=== PATIENT | female | born 1950 | race Caucasian/White ===

== ENCOUNTER 2020-09-16 11:03 | Observation (INO) | payer MEDICARE, BC ==
[2020-09-16] MEDS ORDERED: Sodium Chloride 0.9% 1,000 ML IV ONE (11:33)
[2020-09-16 12:02] LABS: ANION GAP 12.7 mmol/L (5-15)
--- NOTE | 2020-09-16 12:02 | EDM.PDOC ---
ED HPI GENERAL MEDICAL PROBLEM - General Chief Complaint: Abdominal Pain Stated Complaint: upper abdominal pain Time Seen by Provider: 09/16/20 11:30 Source of Information: Reports: Patient History Limitations: Reports: No Limitations - History of Present Illness INITIAL COMMENTS - FREE TEXT/NARRATIVE: Patient reports abdominal pain that started at 5 am today. States she had a prior episode about 2 weeks ago. States pain is a dull cramping. Pain is intermittent and better at this time. Rated a 1/10. Denies nausea or vomiting. Had a regular BM today. No diarrhea. No recent illnesses. No alcohol consumption or smoking. Has had total hysterectomy. Still does have gall bladder and appendix. Denies cardiac medical history. Is being tested for Von Willebrand due to elevated PT/PTT. Results pending. No SOB, chest pain. Onset: Today, Sudden Onset Date: 09/16/20 Onset Time: 05:00 Duration: Intermittent Location: Reports: Abdomen Quality: Reports: Ache Severity: Moderate Improves with: Reports: None Worsens with: Reports: Movement Associated Symptoms: Reports: No Other Symptoms Epigastric Pain Score (Numeric/FACES): 5 - Related Data Allergies Allergy/AdvReac Type Severity Reaction Status Date / Time acetaminophen [From Lortab] Allergy Nausea and Verified 09/16/20 11:39 Vomiting atorvastatin [From Lipitor] Allergy Muscle Verified 09/16/20 11:39 Aches fenofibrate nanocrystallized Allergy Leg Cramps Verified 09/16/20 11:39 [From Tricor] fenofibrate,micronized Allergy Leg Cramps Verified 09/16/20 11:39 [From Tricor] gluten Allergy Diarrhea Verified 09/16/20 11:39 hydrocodone bitartrate Allergy Nausea and Verified 09/16/20 11:39 [From Lortab] Vomiting isoniazid Allergy Hives Verified 09/16/20 11:39 penicillin Allergy Rash Verified 09/16/20 11:39 tuberculin, purified protein Allergy Cannot Verified 09/16/20 11:39 deriva Remember [tuberculin,purif.prot.deriv.] Home Meds: Home Meds Ascorbate Calcium [Vitamin C] 500 mg PO DAILY 02/02/15 [History] Calcium Carb/Vitamin D3/Vit K1 [Viactiv Soft Chew] 1 tab PO BID 02/02/15 [History] Hyalur Ac/Chond Sul/Colg II/AA [Hyaluronic Acid 40 MG] 1 cap PO ASDIRECTED 02/02/15 [History] Hydrochlorothiazide 25 mg PO DAILY 02/02/15 [History] Levothyroxine [Synthroid] 50 mcg PO DAILY 02/02/15 [History] Menthol/Zinc Oxide [Calmoseptine Ointment Packet] 1 applic TOP BID PRN 02/02/15 [History] Multivitamin with Minerals [Multivitamins with Minerals] 1 tab PO DAILY 02/02/15 [History] Niacin 1,500 mg PO DAILY@18 02/02/15 [History] Vitamin E 400 unit PO DAILY 02/02/15 [History] Aspirin [Ecotrin] 81 mg PO BEDTIME 07/08/15 [History] Docusate Sodium [Colace] 100 mg PO BID PRN 07/08/15 [History] Estrogens, Conjugated [Premarin Vaginal Crm] 0.5 gm VAG .TWICE WEEKLY 07/08/15 [History] Fish Oil/[place]-3 Fatty Acids [Fish Oil] 1 tab PO BID 07/08/15 [History] Ibuprofen [Motrin] 200 - 600 mg PO Q4H PRN 07/08/15 [History] Polyethylene Glycol 3350 [MiraLAX] 17 gm PO DAILY PRN 07/08/15 [History] Chromium Picolinate 200 mcg PO BID 02/27/17 [History] Cyclobenzaprine [Flexeril] 10 mg PO TID PRN 02/27/17 [History] Verapamil [Calan SR] 120 mg PO DAILY 02/27/17 [History] DULoxetine [Cymbalta] 30 mg PO DAILY 09/16/20 [History] Losartan [Cozaar] 25 mg PO DAILY 09/16/20 [History] Past Medical History Cardiovascular History: Reports: High Cholesterol, Hypertension, Other (See Below) Other Cardiovascular History: palpitations Respiratory History: Reports: Sleep Apnea, Other (See Below) Other Respiratory History: pulmonary hypertension Musculoskeletal History: Reports: Arthritis, Back Pain, Chronic, Osteoarthritis, Other (See Below) Other Musculoskeletal History: ankle fx Neurological History: Reports: Neuropathy, Peripheral Psychiatric History: Reports: Depression Endocrine/Metabolic History: Reports: Hypothyroidism, Obesity/BMI 30+ Hematologic History: Reports: Other (See Below) Other Hematologic History: von willebrands disease Oncologic (Cancer) History: Reports: Uterine - Infectious Disease History Infectious Disease History: Reports: None - Past Surgical History HEENT Surgical History: Reports: Naso-Sinus Surgery GI Surgical History: Reports: Colonoscopy Female Surgical History: Reports: Section, Hysterectomy Musculoskeletal Surgical History: Reports: Carpal Tunnel, Hip Replacement, Other (See Below) Other Musculoskeletal Surgeries/Procedures:: plantar fasciitis. carpal tunnel syndrome. trigger finger Social & Family History - Tobacco Use Tobacco Use Status *Q: Never Tobacco User ED ROS GENERAL - Review of Systems Review Of Systems: See Below Constitutional: Reports: No Symptoms HEENT: Reports: No Symptoms Respiratory: Reports: No Symptoms Cardiovascular: Reports: No Symptoms Endocrine: Reports: No Symptoms GI/Abdominal: Reports: Abdominal Pain : Reports: No Symptoms Musculoskeletal: Reports: No Symptoms Skin: Reports: No Symptoms Neurological: Reports: No Symptoms Psychiatric: Reports: No Symptoms Hematologic/Lymphatic: Reports: No Symptoms Immunologic: Reports: No Symptoms ED EXAM, GI/ABD - Physical Exam Exam: See Below Exam Limited By: No Limitations General Appearance: Alert, WD/WN, No Apparent Distress Eyes: Bilateral: Normal Appearance, EOMI Ears: Normal External Exam, Normal Canal, Hearing Grossly Normal, Normal TMs Nose: Normal Inspection, Normal Mucosa, No Blood Throat/Mouth: Normal Inspection, Normal Lips, Normal Teeth, Normal Gums, Normal Oropharynx, Normal Voice, No Airway Compromise Head: Atraumatic, Normocephalic Neck: Normal Inspection, Supple, Non-Tender, Full Range of Motion Respiratory/Chest: No Respiratory Distress, Lungs Clear, Normal Breath Sounds, No Accessory Muscle Use, Chest Non-Tender Cardiovascular: Normal Peripheral Pulses, Regular Rate, Rhythm, No Edema, No Gallop, No JVD, No Murmur, No Rub GI/Abdominal Exam: Normal Bowel Sounds, Soft, No Organomegaly, No Distention, No Abnormal Bruit, No Mass, Tender (tender on palpitation, upper mid abdomen) Back Exam: Normal Inspection, Full Range of Motion, NT Extremities: Normal Inspection, Normal Range of Motion, Non-Tender, Normal Capillary Refill, No Pedal Edema Neurological: Alert, Oriented, CN II-XII Intact, Normal Cognition, Normal Gait, Normal Reflexes, No Motor/Sensory Deficits Psychiatric: Normal Affect, Normal Mood Skin Exam: Warm, Dry, Intact, Normal Color, No Rash Lymphatic: No Adenopathy #1 Interpretation EKG Date: 09/16/20 Time: 11:11 Rhythm: NSR Rate (Beats/Min): 61 [place]: Normal P-Wave: Present QRS: Normal ST-T: Normal QT: Normal Comparison: No Change Course - Vital Signs Last Recorded V/S: Last Vital Signs Temp 36.9 C 09/16/20 21:56 Pulse 65 09/16/20 21:56 Resp 17 09/16/20 21:56 BP 144/61 H 09/16/20 21:56 Pulse Ox 92 L 09/16/20 21:56 - Orders/Labs/Meds Orders: Active Orders 24 hr Category Date Time Status EKG Documentation Completion [RC] STAT Care 09/16/20 11:31 Active Sodium Chloride 0.9% [Saline Flush] Med 09/16/20 11:33 Active 10 ml FLUSH ASDIRECTED PRN Saline Lock Insert [OM.PC] Routine Oth 09/16/20 11:33 Ordered Medication Orders Morphine Sulfate (Morphine 2 Mg/Ml Syringe) 2 mg IVPUSH Q2H PRN PRN Reason: Pain (severe 7-10) Last Admin: 09/16/20 22:25 Dose: 2 mg Documented by: Admin: 09/16/20 19:46 Dose: 2 mg Documented by: Admin: 09/16/20 15:55 Dose: 2 mg Documented by: ROLANDO Ondansetron HCl (Ondansetron 4 Mg/2 Ml Sdv) 4 mg IV Q6H PRN PRN Reason: Nausea/Vomiting Last Admin: 09/16/20 22:24 Dose: 4 mg Documented by: Admin: 09/16/20 15:56 Dose: 4 mg Documented by: OR[place]O Sodium Chloride (Sodium Chloride 0.9% 10 Ml Syringe) 10 ml FLUSH ASDIRECTED PRN PRN Reason: Keep Vein Open Last Admin: 09/16/20 22:24 Dose: 10 ml Documented by: Admin: 09/16/20 19:45 Dose: 10 ml Documented by: Admin: 09/16/20 15:58 Dose: 10 ml Documented by: ROLANDO Labs: Laboratory Tests 09/16/20 09/16/20 09/16/20 Range/Units 11:20 11:20 12:30 WBC 11.3 H (4.0-10.0) x10^3/uL RBC 4.03 (4.00-5.50) x10^6/uL Hgb 12.5 (12.0-16.0) g/dL Hct 35.9 (33.0-47.0) % MCV 89.1 (78.0-93.0) fL MCH 31.0 (26.0-32.0) pg MCHC 34.8 (32.0-36.0) g/dL RDW Coeff of Tejal 12.9 (10.0-15.0) % Plt Count 274 (130-400) x10^3/uL Neut % (Auto) 84.9 H (50.0-80.0) % Lymph % (Auto) 7.0 L (25.0-50.0) % [place] % (Auto) 6.8 (2.0-11.0) % Eos % (Auto) 1.1 (0.0-4.0) % Baso % (Auto) 0.2 (0.2-1.2) % Sodium 135 L (136-145) mmol/L Potassium 3.7 (3.5-5.1) mmol/L Chloride 96 L (98-107) mmol/L Carbon Dioxide 30 (21-32) mmol/L Anion Gap 12.7 (5-15) mmol/L BUN 24 H (7-18) mg/dL Creatinine 1.2 H (0.55-1.02) mg/dL Est Cr Clr Drug Dosing 38.90 mL/min Estimated GFR (MDRD) 44 Glucose 133 H (70-99) mg/dL Calcium 9.5 (8.5-10.1) mg/dL Corrected Calcium 9.6 (8.5-10.1) mg/dL Magnesium 1.8 (1.8-2.4) mg/dL Total Bilirubin 0.6 (0.2-1.0) mg/dL AST 19 (15-37) U/L ALT 27 (14-59) U/L Alkaline Phosphatase 76 (46-116) U/L Creatine Kinase 126 (26-192) U/L Troponin I High Sens 9 (<=51) ng/L Total Protein 7.8 (6.4-8.2) g/dL Albumin 3.9 (3.4-5.0) g/dL Globulin 3.9 Albumin/Globulin Ratio 1.00 Amylase 84 (25-115) U/L Urine Color Dark yellow H (YELLOW) Urine Appearance Clear (CLEAR) Urine pH 6.0 (5.0-8.0) Ur Specific [place] 1.025 Urine Protein Negative (NEGATIVE) mg/dL Urine Glucose (UA) Negative (NEGATIVE) mg/dL Urine Ketones Trace H (NEGATIVE) mg/dL Urine Occult Blood Negative (NEGATIVE) Urine Nitrite Negative (NEGATIVE) Urine Bilirubin Small H (NEGATIVE) Urine Urobilinogen 0.2 (0.2) EU/dL Ur Leukocyte Esterase Negative (NEGATIVE) Meds: Medications Generic Name Dose Route Start Last Admin Trade Name Freq PRN Reason Stop Dose Admin Morphine Sulfate 2 mg 09/16/20 15:09 09/16/20 22:25 Morphine 2 Mg/Ml Syringe IVPUSH 2 mg Q2H PRN Administration Pain (severe 7-10) Ondansetron HCl 4 mg 09/16/20 15:09 09/16/20 22:24 Ondansetron 4 Mg/2 Ml Sdv IV 4 mg Q6H PRN Administration Nausea/Vomiting Sodium Chloride 10 ml 09/16/20 11:33 09/16/20 22:24 Sodium Chloride 0.9% 10 Ml Syringe FLUSH 10 ml ASDIRECTED PRN Administration Keep Vein Open Discontinued Medications Generic Name Dose Route Start Last Admin Trade Name Freq PRN Reason Stop Dose Admin Sodium Chloride 1,000 mls @ 999 mls/hr 09/16/20 11:33 09/16/20 11:30 Normal Saline IV 09/16/20 12:33 999 mls/hr ONETIME ONE Administration Iopamidol 100 ml 09/16/20 13:15 09/16/20 13:16 Iopamidol 612 Mg/Ml 100 Ml Bottle IVPUSH 09/16/20 13:16 100 ml ONETIME ONE Administration - Radiology Interpretation Free Text/Narrative:: CT scan shows partial small bowel obstruction Departure - Departure Time of Disposition: 14:35 Disposition: Refer to Observation Condition: Good Clinical Impression: Small bowel obstruction - Discharge Information *PRESCRIPTION DRUG MONITORING PROGRAM REVIEWED*: Not Applicable *COPY OF PRESCRIPTION DRUG MONITORING REPORT IN PATIENT LG: Not Applicable Sepsis Event Note (ED) - Evaluation Sepsis Screening Result: No Definite Risk - Problem List Review Problem List Initiated/Reviewed/Updated: Yes - My Orders Last 24 Hours: My Active Orders 09/16/20 11:31 EKG Documentation Completion [RC] STAT 09/16/20 11:33 Sodium Chloride 0.9% [Saline Flush] 10 ml FLUSH ASDIRECTED PRN Saline Lock Insert [OM.PC] Routine - Assessment/Plan Last 24 Hours: My Active Orders 09/16/20 11:31 EKG Documentation Completion [RC] STAT 09/16/20 11:33 Sodium Chloride 0.9% [Saline Flush] 10 ml FLUSH ASDIRECTED PRN Saline Lock Insert [OM.PC] Routine Assessment:: small bowel obstruction Plan: 1. Admit to observation 2. Start NG tube at low intermittent suction 3. IV nausea medication 4. NPO 5. Trial clear liquids tomorrow 6. If not improving, may need transfer to higher level care facility 7. Patient code level I PLEASE USE ER NOTE FOR ADMISSION HISTORY AND PHYSICAL
[2020-09-16] MEDS ORDERED: Iopamidol 612 MG/ML 100 ML Bottle IVPUSH ONE (13:15)
--- NOTE | 2020-09-16 13:27 | CR ---
[id number] RAD/RAD Chest PA And Lateral EXAM: RAD Chest PA And Lateral INDICATION: ABDOMINAL PAIN. COMPARISON: April 2009. DISCUSSION/IMPRESSION: Cardiomediastinal silhouette is normal in size and contour. Lungs are clear. No pleural effusion or pneumothorax. Mahad Haines MD 09/16/20 [id number] Thank you for allowing us to participate in the care of your patient.
--- NOTE | 2020-09-16 13:48 | CT ---
[id number] CT/CT Abdomen Pelvis W IV EXAM: CT Abdomen Pelvis W IV CLINICAL DATA: ABDOMINAL PAIN. COMPARISON STUDY: None. FINDINGS: Cholelithiasis. No evidence of acute cholecystitis. Liver, spleen, pancreas, and adrenal glands are unremarkable. Simple cortical cysts in the right kidney. Kidneys are otherwise unremarkable. Distended, dilated, fluid-filled stomach and loops of small bowel to the level of the pelvis where there is transition to decompressed bowel in the distal ileum. Transition point is seen near the right iliac vessels on axial series 2 images 97-110. There is fecal indication in the small bowel loop leading up to the transition point. Findings are consistent with partial small bowel obstruction. Mild amount of edema in the involved mesentery of the abnormal bowel loops. However, no evidence of perforation. No pneumatosis or pneumoperitoneum. Colonic diverticulosis. No evidence of acute diverticulitis or colitis. 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 Chronic appearing Abnormal mineralization in the pelvis including the posterior right iliac bone and left sacral ala. Findings are nonspecific. IMPRESSION: Changes of distal small bowel obstruction with transition point in the ileum, described above. Mild mesenteric edema associated with the abnormal bowel loops. Other findings are described above. Mahad Haines MD 09/16/20 1314 Thank you for allowing us to participate in the care of your patient.
[2020-09-16] MEDS: Morphine 2 MG/ML SYRINGE IVPUSH PRN ×3 (15:55→22:25)
[2020-09-16] MEDS: Ondansetron 4 MG/2 ML SDV IV PRN ×2 (15:56→22:24)
[2020-09-16] MEDS: Sodium Chloride 0.9% 10 ML Syringe FLUSH PRN ×3 (15:58→22:24)
--- NOTE | 2020-09-16 18:23 | CR ---
[id number] RAD/RAD Abdomen Flat Plate 1V EXAM: RAD Abdomen Flat Plate 1V INDICATION: NG/OG TUBE PLACEMENT COMPARISON: CT from today Discussion/Impression: NG tube has been placed. Tip projects over the left upper quadrant in expected location of the stomach. Mahad Haines MD 09/16/20 [id number] Thank you for allowing us to participate in the care of your patient.
[2020-09-17] MEDS: Ondansetron 4 MG/2 ML SDV IV PRN ×2 (07:45→13:08)
[2020-09-17] MEDS: Sodium Chloride 0.9% 10 ML Syringe FLUSH PRN ×2 (07:46→13:10)
[2020-09-17 09:58] VITALS: BP 131/64; PULSE 60
[2020-09-17 10:26] LABS: ANION GAP 13.5 mmol/L (5-15)
--- NOTE | 2020-09-17 11:17 | PCM.SN.2 ---
- Free Text/Narrative Note: Due to patient appearing to develop GI bleed of unknown etiology, patient is going to be transferred to [facility] in [place]. Contents of suction canister are positive for blood. Report called to Dr. Hernandez with hospitalist services and has accepted care. Await opening. They will call when they have an open room.
--- NOTE | 2020-09-17 13:44 | PCM.DCSUM1 ---
Discharge Summary - Hospital Course HPI Initial Comments: Patient presented to ED with complaints of upper mid epigastric pain, nausea. Started about 5 am the day of her presentation. Reported another episode of this about 2 weeks ago. This resolved. No fever, chills, or complaints otherwise. Brief History: Admitted due to SBO on CT examination. Diagnosis: Stroke: No Modified Henna Scale: No Symptoms at All Modified Henna Scale Score: 0 - Discharge Data Discharge Date: 09/17/20 Discharge Disposition: DC/Tfer to Acute Hospital 02 Condition: Good - Referral to Home Health Primary Care Physician: Tami Abel MD - Discharge Diagnosis/Problem(s) (1) GI bleed SNOMED Code(s): 18956214 ICD Code: K92.2 - GASTROINTESTINAL HEMORRHAGE, UNSPECIFIED Status: Acute Current Visit: Yes Qualifiers: GI bleed type/associated pathology: unspecified gastrointestinal hemorrhage type Qualified Code(s): K92.2 - Gastrointestinal hemorrhage, unspecified (2) Small bowel obstruction SNOMED Code(s): 275337882 ICD Code: K56.609 - UNSP INTESTNL OBST, UNSP TO PARTIAL VERSUS COMPLETE OBST Status: Acute Current Visit: Yes - Patient Instructions Diet: NPO - Discharge Plan *PRESCRIPTION DRUG MONITORING PROGRAM REVIEWED*: Not Applicable *COPY OF PRESCRIPTION DRUG MONITORING REPORT IN PATIENT LG: Not Applicable Home Medications: Home Meds Ascorbate Calcium [Vitamin C] 500 mg PO DAILY 02/02/15 [History] Calcium Carb/Vitamin D3/Vit K1 [Viactiv Soft Chew] 1 tab PO BID 02/02/15 [History] Hyalur Ac/Chond Sul/Colg II/AA [Hyaluronic Acid 40 MG] 1 cap PO ASDIRECTED 02/02/15 [History] Hydrochlorothiazide 25 mg PO DAILY 02/02/15 [History] Levothyroxine [Synthroid] 50 mcg PO DAILY 02/02/15 [History] Menthol/Zinc Oxide [Calmoseptine Ointment Packet] 1 applic TOP BID PRN 02/02/15 [History] Multivitamin with Minerals [Multivitamins with Minerals] 1 tab PO DAILY 02/02/15 [History] Niacin 1,500 mg PO DAILY@18 02/02/15 [History] Vitamin E 400 unit PO DAILY 02/02/15 [History] Aspirin [Ecotrin] 81 mg PO BEDTIME 07/08/15 [History] Docusate Sodium [Colace] 100 mg PO BID PRN 07/08/15 [History] Estrogens, Conjugated [Premarin Vaginal Crm] 0.5 gm VAG .TWICE WEEKLY 07/08/15 [History] Fish Oil/[place]-3 Fatty Acids [Fish Oil] 1 tab PO BID 07/08/15 [History] Ibuprofen [Motrin] 200 - 600 mg PO Q4H PRN 07/08/15 [History] Polyethylene Glycol 3350 [MiraLAX] 17 gm PO DAILY PRN 07/08/15 [History] Chromium Picolinate 200 mcg PO BID 02/27/17 [History] Cyclobenzaprine [Flexeril] 10 mg PO TID PRN 02/27/17 [History] Verapamil [Calan SR] 120 mg PO DAILY 02/27/17 [History] DULoxetine [Cymbalta] 30 mg PO DAILY 09/16/20 [History] Losartan [Cozaar] 25 mg PO DAILY 09/16/20 [History] Forms: ED Department Discharge, Interfacility Transfer EMTALA Referrals: Tami Abel MD [Primary Care Provider] - - Discharge Summary/Plan Comment DC Time >30 min.: Yes (transfer to [facility] for follow up) - General Info Date of Service: 09/17/20 Admission Dx/Problem (Free Text: sbo Functional Status: Reports: Other (having pain but refusing pain medications) - Review of Systems General: Reports: No Symptoms HEENT: Reports: No Symptoms Pulmonary: Reports: No Symptoms Cardiovascular: Reports: No Symptoms Gastrointestinal: Reports: Abdominal Pain, Nausea Genitourinary: Reports: No Symptoms Musculoskeletal: Reports: No Symptoms Skin: Reports: No Symptoms Neurological: Reports: No Symptoms Psychiatric: Reports: No Symptoms - Patient Data Vitals - Most Recent: Last Vital Signs Temp 36.9 C 09/17/20 09:57 Pulse 60 09/17/20 09:57 Resp 17 09/17/20 09:57 BP 131/64 09/17/20 09:57 Pulse Ox 91 L 09/17/20 09:57 Weight - Most Recent: 105.46 kg I&O - Last 24 hours: Intake & Output 09/16/20 09/17/20 09/17/20 22:59 06:59 14:59 Intake Total 0 0 Output Total 400 Balance -400 0 0 Lab Results - Last 24 hrs: Laboratory Results - last 24 hr 09/16/20 09/17/20 09/17/20 Range/Units 14:07 09:59 09:59 WBC 7.3 (4.0-10.0) x10^3/uL RBC 4.16 (4.00-5.50) x10^6/uL Hgb 12.8 (12.0-16.0) g/dL Hct 37.7 (33.0-47.0) % MCV 90.6 (78.0-93.0) fL MCH 30.8 (26.0-32.0) pg MCHC 34.0 (32.0-36.0) g/dL RDW Coeff of [place]jal 13.1 (10.0-15.0) % Plt Count 268 (130-400) x10^3/uL Neut % (Auto) 78.8 (50.0-80.0) % Lymph % (Auto) 11.7 L (25.0-50.0) % [place] % (Auto) 7.8 (2.0-11.0) % Eos % (Auto) 1.4 (0.0-4.0) % Baso % (Auto) 0.3 (0.2-1.2) % Sodium 137 (136-145) mmol/L Potassium 3.5 (3.5-5.1) mmol/L Chloride 100 (98-107) mmol/L Carbon Dioxide 27 (21-32) mmol/L Anion Gap 13.5 (5-15) mmol/L BUN 16 (7-18) mg/dL Creatinine 1.1 H (0.55-1.02) mg/dL Est Cr Clr Drug Dosing 41.60 mL/min Estimated GFR (MDRD) 49 Glucose 134 H (70-99) mg/dL Calcium 9.0 (8.5-10.1) mg/dL Corrected Calcium 9.3 (8.5-10.1) mg/dL Total Bilirubin 0.9 (0.2-1.0) mg/dL AST 16 (15-37) U/L ALT 24 (14-59) U/L Alkaline Phosphatase 62 (46-116) U/L Total Protein 7.3 (6.4-8.2) g/dL Albumin 3.6 (3.4-5.0) g/dL Globulin 3.7 Albumin/Globulin Ratio 0.97 SARS CoV-2 RNA Rapid HONORIO Negative (NEGATIVE) Med Orders - Current: Current Medications Morphine Sulfate (Morphine 2 Mg/Ml Syringe) 2 mg IVPUSH Q2H PRN PRN Reason: Pain (severe 7-10) Last Admin: 09/16/20 22:25 Dose: 2 mg Documented by: Ondansetron HCl (Ondansetron 4 Mg/2 Ml Sdv) 4 mg IV Q6H PRN PRN Reason: Nausea/Vomiting Last Admin: 09/17/20 13:08 Dose: 4 mg Documented by: Sodium Chloride (Sodium Chloride 0.9% 10 Ml Syringe) 10 ml FLUSH ASDIRECTED PRN PRN Reason: Keep Vein Open Last Admin: 09/17/20 13:10 Dose: 10 ml Documented by: Discontinued Medications Sodium Chloride (Normal Saline) 1,000 mls @ 999 mls/hr IV ONETIME ONE Stop: 09/16/20 12:33 Last Admin: 09/16/20 11:30 Dose: 999 mls/hr Documented by: Iopamidol (Iopamidol 612 Mg/Ml 100 Ml Bottle) 100 ml IVPUSH ONETIME ONE Stop: 09/16/20 13:16 Last Admin: 09/16/20 13:16 Dose: 100 ml Documented by: - Exam General: Reports: Alert, Oriented HEENT: Reports: Pupils Equal, Pupils Reactive, EOMI, Mucous Membr. Moist/[place] Neck: Reports: Supple Lungs: Reports: Clear to Auscultation, Normal Respiratory Effort Cardiovascular: Reports: Regular Rate, Regular Rhythm GI/Abdominal Exam: Soft, Distended, Tender Back Exam: Reports: Normal Inspection, Full Range of Motion Extremities: Normal Inspection, Normal Range of Motion, Non-Tender, No Pedal Edema, Normal Capillary Refill Skin: Reports: Warm, Dry, Intact Neurological: Reports: No New Focal Deficit Psy/Mental Status: Reports: Alert, Normal Affect, Normal Mood
== END 2020-09-17 13:35 | disposition short-term general hospital (02) ==
LOC: VM.ED 11:03 → VM.MS 14:03
PROVIDERS: ADMIT Nurse Practitioner Family; ATTEND Nurse Practitioner Family
DX: K56.609 Unspecified intestinal obstruction, unspecified as to partial versus complete obstruction (principal); E78.00 Pure hypercholesterolemia, unspecified; I10 Essential (primary) hypertension; E03.9 Hypothyroidism, unspecified; E66.9 Obesity, unspecified; G62.9 Polyneuropathy, unspecified; Z98.890 Other specified postprocedural states; Z88.8 Allergy status to other drugs, medicaments and biological substances; Z88.0 Allergy status to penicillin; Z88.5 Allergy status to narcotic agent; Z79.82 Long term (current) use of aspirin; Z79.899 Other long term (current) drug therapy; Z20.822 Contact with and (suspected) exposure to COVID-19
CPT/HCPCS: 36415; 71046; 74018; 74177; 80053; 81003; 82150; 82550; 83735; 84484; 85025; 93005; 99285; J2270; J2405; J7030; Q9967; U0002; 93010; 96374; 96375; 96376; 99217; 99220; G0378

== ENCOUNTER 2021-03-27 04:02 | Emergency (ER) | payer MEDICARE, BC ==
[2021-03-27] MEDS ORDERED: Sodium Chloride 0.9% 10 ML Syringe FLUSH PRN (04:40)
[2021-03-27] MEDS ORDERED: Ondansetron 4 MG/2 ML SDV IVPUSH ONE (04:42)
[2021-03-27] MEDS ORDERED: Morphine 4 MG/ML Syringe IVPUSH ONE (04:43)
[2021-03-27] MEDS ORDERED: Sodium Chloride 0.9% 1,000 ML IV SCH (04:45)
[2021-03-27 05:24] LABS: CHLORIDE,CL 101 mmol/L (98-107); SODIUM,NA 141 mmol/L (136-145)
[2021-03-27 05:25] LABS: ANION GAP 15.5 mmol/L (5-15)
[2021-03-27 05:47] LABS: PTT,PARTIAL THROMBOPLSTIN TIME 28.2 SEC (25.6-32.8)
[2021-03-27] MEDS ORDERED: Iopamidol 612 MG/ML 100 ML Bottle IVPUSH ONE (06:01)
--- NOTE | 2021-03-27 06:34 | EDM.PDOC ---
<Parviz Vasquez W - Last Filed: 03/27/21 06:36> ED HPI GENERAL MEDICAL PROBLEM - General Chief Complaint: Abdominal Pain Stated Complaint: Upper abdominal pain Time Seen by Provider: 03/27/21 04:15 Source of Information: Reports: Patient History Limitations: Reports: No Limitations - History of Present Illness INITIAL COMMENTS - FREE TEXT/NARRATIVE: Pt. presents to ER with complaints of episode of upper abdominal pain. Pt. states that she has had similar pain it the past when she had a bowel obstruction. She states that the pain started at 11:30 PM last night. She denies any fever or chills. No chest pain or shortness of breath. She states that when she had her previous bowel obstruction an NG tube was placed and she was admitted. She had some bleeding from her distal esophagus and had EGD, which showed some gastritis secondary to NSAID use which she has stopped. Pt. denies any current melena, hematochezia, or hematemesis. No fever or chills. No chest pain or shortness of breath. Onset: Today Onset Date: 03/27/21 Location: Reports: Abdomen - Related Data Allergies Allergy/AdvReac Type Severity Reaction Status Date / Time isoniazid Allergy Hives Verified 03/27/21 06:39 penicillin Allergy Rash Verified 03/27/21 06:39 tuberculin, purified protein Allergy Cannot Verified 03/27/21 06:39 deriva Remember [tuberculin,purif.prot.deriv.] acetaminophen [From Lortab] AdvReac Nausea and Verified 03/27/21 06:39 Vomiting atorvastatin [From Lipitor] AdvReac Muscle Verified 03/27/21 06:39 Aches fenofibrate nanocrystallized AdvReac Leg Cramps Verified 03/27/21 06:39 [From Tricor] fenofibrate,micronized AdvReac Leg Cramps Verified 03/27/21 06:39 [From Tricor] gluten AdvReac Diarrhea Verified 03/27/21 06:39 hydrocodone bitartrate AdvReac Nausea and Verified 03/27/21 06:39 [From Lortab] Vomiting Home Meds: Home Meds Ascorbate Calcium [Vitamin C] 500 mg PO DAILY 02/02/15 [History] Calcium Carb/Vitamin D3/Vit K1 [Viactiv Soft Chew] 1 tab PO BID 02/02/15 [History] Hyalur Ac/Chond Sul/Colg II/AA [Hyaluronic Acid 40 MG] 1 cap PO ASDIRECTED 02/02/15 [History] Hydrochlorothiazide 25 mg PO DAILY 02/02/15 [History] Levothyroxine [Synthroid] 50 mcg PO DAILY 02/02/15 [History] Menthol/Zinc Oxide [Calmoseptine Ointment Packet] 1 applic TOP BID PRN 02/02/15 [History] Multivitamin with Minerals [Multivitamins with Minerals] 1 tab PO DAILY 02/02/15 [History] Niacin 1,500 mg PO DAILY@18 02/02/15 [History] Vitamin E 400 unit PO DAILY 02/02/15 [History] Estrogens, Conjugated [Premarin Vaginal Crm] 0.5 gm VAG .TWICE WEEKLY 07/08/15 [History] Fish Oil/[place]-3 Fatty Acids [Fish Oil] 1 tab PO BID 07/08/15 [History] Polyethylene Glycol 3350 [MiraLAX] 17 gm PO DAILY PRN 07/08/15 [History] Cyclobenzaprine [Flexeril] 10 mg PO TID PRN 02/27/17 [History] Verapamil [Calan SR] 120 mg PO DAILY 02/27/17 [History] DULoxetine [Cymbalta] 30 mg PO DAILY 09/16/20 [History] Losartan [Cozaar] 25 mg PO DAILY 09/16/20 [History] Ezetimibe 10 mg PO DAILY 03/27/21 [History] Past Medical History Cardiovascular History: Reports: High Cholesterol, Hypertension, Other (See Below) Other Cardiovascular History: palpitations Respiratory History: Reports: Sleep Apnea, Other (See Below) Other Respiratory History: pulmonary hypertension Musculoskeletal History: Reports: Arthritis, Back Pain, Chronic, Osteoarthritis, Other (See Below) Other Musculoskeletal History: ankle fx Neurological History: Reports: Neuropathy, Peripheral Psychiatric History: Reports: Depression Endocrine/Metabolic History: Reports: Hypothyroidism, Obesity/BMI 30+ Hematologic History: Reports: Other (See Below) Other Hematologic History: von willebrands disease Oncologic (Cancer) History: Reports: Uterine - Infectious Disease History Infectious Disease History: Reports: Measles - Past Surgical History HEENT Surgical History: Reports: Naso-Sinus Surgery GI Surgical History: Reports: Colonoscopy Female Surgical History: Reports: Section, Hysterectomy Musculoskeletal Surgical History: Reports: Carpal Tunnel, Hip Replacement, Other (See Below) Other Musculoskeletal Surgeries/Procedures:: plantar fasciitis. carpal tunnel syndrome. trigger finger Social & Family History - Caffeine Use Caffeine Use: Reports: Coffee, Soda ED ROS GENERAL - Review of Systems Review Of Systems: See Below Constitutional: Denies: Fever, Chills, Malaise, Weakness, Fatigue, Weight Loss HEENT: Reports: No Symptoms Respiratory: Reports: No Symptoms Cardiovascular: Reports: No Symptoms Endocrine: Reports: No Symptoms GI/Abdominal: Reports: Abdominal Pain. Denies: Black Stool, Bloody Stool, Diarrhea, Hematemesis, Hematochezia, Melena : Reports: No Symptoms Musculoskeletal: Reports: No Symptoms Skin: Reports: No Symptoms Neurological: Reports: No Symptoms Psychiatric: Reports: No Symptoms Hematologic/Lymphatic: Reports: No Symptoms Immunologic: Reports: No Symptoms ED EXAM, GENERAL - Physical Exam Exam: See Below Exam Limited By: No Limitations General Appearance: Alert, WD/WN, No Apparent Distress Eye Exam: Bilateral Eye: EOMI Head: Atraumatic, Normocephalic Neck: Normal Inspection, Supple, Non-Tender, Full Range of Motion Respiratory/Chest: No Respiratory Distress, Lungs Clear, Normal Breath Sounds, No Accessory Muscle Use, Chest Non-Tender Cardiovascular: Normal Peripheral Pulses, Regular Rate, Rhythm, No Edema, No JVD, No Murmur Peripheral Pulses: 4+: Radial (R) GI/Abdominal: Soft, No Organomegaly, No Distention, Tender (mildly tender on palpation of upper abdomen.) (Female) Exam: Deferred Rectal (Female) Exam: Deferred Back Exam: Normal Inspection, Full Range of Motion Extremities: Normal Inspection, Normal Range of Motion, Non-Tender, No Pedal Edema, Normal Capillary Refill Neurological: Alert, Oriented, CN II-XII Intact, Normal Cognition Psychiatric: Normal Affect, Normal Mood Skin Exam: Warm, Dry, Intact, Normal Color Departure - Departure Disposition: Home, Self-Care 01 Clinical Impression: Ileus, Renal cyst, Obstipation Cholelithiasis Qualifiers: Cholelithiasis location: gallbladder Cholecystitis presence: without cholecystitis Biliary obstruction: without biliary obstruction Qualified Code(s): K80.20 - Calculus of gallbladder without cholecystitis without obstruction - Discharge Information Instructions: Cholelithiasis, [id number] Referrals: PCP,None [Primary Care Provider] - Forms: ED Department Discharge Additional Instructions: Drink 10-12 glasses of water a day. Miralax, 1 capful every day until easy smooth bowel movements. If you do no have a good BM in 24 hours increase to 2 capfuls and continue increase daily until easy smooth bowel movements and then titrate to easy BMs. We will contact you for follow up appointment for gallbladder Ultrasound. The cyst on the kidney is simple so no follow up at this time. Return to the ED if new or worsening symptoms. Especially increased pain, nausea vomiting or fever. Follow up with PCP after the ultrasound of your gallbladder and recheck of symptoms. <Kishore Engle - Last Filed: 03/27/21 08:42> Course - Vital Signs Last Recorded V/S: Last Vital Signs Temp 98.3 F 03/27/21 04:02 Pulse 54 L 03/27/21 04:02 Resp 16 03/27/21 04:02 BP 132/56 L 03/27/21 04:02 Pulse Ox 95 03/27/21 04:02 - Orders/Labs/Meds Orders: Active Orders 24 hr Category Date Time Status Sodium Chloride 0.9% [Normal Saline] 1,000 ml Med 03/27/21 04:45 Active IV ASDIRECTED Sodium Chloride 0.9% [Saline Flush] Med 03/27/21 04:40 Active 10 ml FLUSH ASDIRECTED PRN Peripheral IV Insertion Adult [OM.PC] Routine Oth 03/27/21 04:40 Ordered Medication Orders Sodium Chloride (Normal Saline) 1,000 mls @ 150 mls/hr IV ASDIRECTED FOR[facility]LY [facility], [facility]–1983 Last Admin: 03/27/21 05:00 Dose: 150 mls/hr Documented by: VERNON Sodium Chloride (Sodium Chloride 0.9% 10 Ml Syringe) 10 ml FLUSH ASDIRECTED PRN PRN Reason: Keep Vein Open Labs: Laboratory Tests 03/27/21 03/27/21 03/27/21 Range/Units 04:58 04:58 04:58 WBC 13.5 H (4.0-10.0) x10^3/uL RBC 4.08 (4.00-5.50) x10^6/uL Hgb 12.4 (12.0-16.0) g/dL Hct 36.5 (33.0-47.0) % MCV 89.5 (78.0-93.0) fL MCH 30.4 (26.0-32.0) pg MCHC 34.0 (32.0-36.0) g/dL RDW Coeff of Tejal 12.0 (10.0-15.0) % Plt Count 354 (130-400) x10^3/uL Immature Gran % (Auto) 0.10 (0.00-0.43) % Neut % (Auto) 86.9 H (50.0-80.0) % Lymph % (Auto) 7.3 L (25.0-50.0) % [place] % (Auto) 4.7 (2.0-11.0) % Eos % (Auto) 0.7 (0.0-4.0) % Baso % (Auto) 0.3 (0.2-1.2) % Neut # (Auto) 11.8 H (1.8-7.7) x10^3/uL Lymph # (Auto) 1.0 (1.0-4.8) x10^3/uL [place] # (Auto) 0.6 (0.0-0.8) x10^3/uL Eos # (Auto) 0.1 (0.0-0.5) x10^3/uL Baso # (Auto) 0.0 (0.0-0.2) x10^3/uL Immature Gran # (Auto) 0.01 (0.00-0.07) x10^3/uL PT 10.6 (9.9-12.5) SEC INR 1.0 L (2.0-3.5) APTT 28.2 (25.6-32.8) SEC Sodium 141 (136-145) mmol/L Potassium 3.5 (3.5-5.1) mmol/L Chloride 101 (98-107) mmol/L Carbon Dioxide 28 (21-32) mmol/L Anion Gap 15.5 H (5-15) mmol/L BUN 35 H (7-18) mg/dL Creatinine 1.3 H (0.55-1.02) mg/dL Est Cr Clr Drug Dosing TNP Estimated GFR (MDRD) 40 Glucose 126 H (70-99) mg/dL Calcium 9.5 (8.5-10.1) mg/dL Corrected Calcium 9.5 (8.5-10.1) mg/dL Phosphorus 4.2 (2.6-4.7) mg/dL Magnesium 2.0 (1.8-2.4) mg/dL Total Bilirubin 0.6 (0.2-1.0) mg/dL AST 17 (15-37) U/L ALT 27 (14-59) U/L Alkaline Phosphatase 93 (46-116) U/L C-Reactive Protein < 0.2 (<=0.9) mg/dL Total Protein 8.0 (6.4-8.2) g/dL Albumin 4.0 (3.4-5.0) g/dL Globulin 4.0 Albumin/Globulin Ratio 1.00 Amylase 81 (25-115) U/L Lipase 66 L (73-393) U/L Meds: Medications Generic Name Dose Route Start Last Admin Trade Name Shira PRN Reason Stop Dose Admin Sodium Chloride 1,000 mls @ 150 mls/hr 03/27/21 04:45 03/27/21 05:00 Normal Saline IV 150 mls/hr ASDIRECTED HIRAL Administration Sodium Chloride 10 ml 03/27/21 04:40 Sodium Chloride 0.9% 10 Ml Syringe FLUSH ASDIRECTED PRN Keep Vein Open Discontinued Medications Generic Name Dose Route Start Last Admin Trade Name Freq PRN Reason Stop Dose Admin Bisacodyl 10 mg 03/27/21 08:00 Bisacodyl 10 Mg Supp RECTAL 03/27/21 08:01 ONETIME ONE Iopamidol 75 ml 03/27/21 06:01 03/27/21 06:01 Iopamidol 612 Mg/Ml 100 Ml Bottle IVPUSH 03/27/21 06:02 75 ml ONETIME ONE Administration Metoclopramide HCl 5 mg 03/27/21 08:00 Metoclopramide 10 Mg/2 Ml Sdv IVPUSH 03/27/21 08:01 ONETIME ONE Morphine Sulfate 4 mg 03/27/21 04:43 03/27/21 05:04 Morphine 4 Mg/Ml Syringe IVPUSH 03/27/21 04:44 4 mg ONETIME ONE Administration Ondansetron HCl 4 mg 03/27/21 04:42 03/27/21 05:02 Ondansetron 4 Mg/2 Ml Sdv IVPUSH 03/27/21 04:43 4 mg ONETIME ONE Administration Polyethylene Glycol 51 gm 03/27/21 08:00 Polyethylene Glycol 3350 Powder 17 Gm Packet PO 03/27/21 08:01 ONETIME ONE - Radiology Interpretation Free Text/Narrative:: CT scan initially reviewed extemporaneously by myself shows some mild dilation of the small bowel unable to identify any transition point. This really appears to be more of an ileus most likely caused from the abundant amount of stool within the colon. Radiological review to follow. Also some stones in the gallbladder and question some gallbladder distention. Bedside ultrasound completed and reviewed extemporaneously by myself. There is some sludge and stones within the gallbladder 1 stone near the gallbladder neck. Gallbladder wall in the anterior aspect is 2 mm. There is no gallbladder distention. There is no pericystic fluid. She does not have a sonographic Samano sign. Unable to identify the common bile duct. CT scan per radiology shows mild dilation of the mid to distal small bowel with no transition point identified. Favor ileus, enteritis, or functional obstruction from an elevated stool volume in the proximal colon. No transition point is identified to suggest mechanical obstruction. Cholelithiasis. - Re-Assessments/Exams Free Text/Narrative Re-Assessment/Exam: 03/27/21 08:37 Care assumed to this patient at shift change at 0 700. The patient had received some IV fluids morphine and Zofran prior to my assumption of care. She really was quite asymptomatic even prior to this therapy and was feeling better after she got here. Laboratory evaluation with a mild elevation of her WBC at 13.5, hemoglobin normal at 12.4, platelet count 354. CMP with a creatinine of 1.3 and a BUN of 35 which appears to be at this patient's baseline. Glucose 126. Liver enzymes are all normal including T bili. Lipase is normal. After the above therapy the patient's abdomen is soft nontender nondistended with still some hypoactive bowel sounds. I reviewed the CT results with the patient. As well as the ultrasound that I completed. I think this is an incidental finding of her cholelithiasis and will have an outpatient ultrasound completed for complete evaluation of this. And I think her symptoms today are primarily caused by the abundant amount of stool that is giving her a functional small bowel obstruction. I did offer observation but she would like to go home. We will treat her with MiraLAX a small dose of Reglan in the emergency department and a Dulcolax suppository. If it anytime she has worsening symptoms she is to return and we will hospitalize her to get her bowels moving for her small bowel obstruction. She is comfortable with this plan and her questions are answered. 03/27/21 08:41 Departure - Departure Time of Disposition: 08:16 Sepsis Event Note (ED) - Focused Exam Vital Signs: Vital Signs Temp Pulse Resp BP Pulse Ox 03/27/21 04:02 98.3 F 54 L 16 132/56 L 95
[2021-03-27 06:39] VITALS: BP 132/56; PULSE 54
--- NOTE | 2021-03-27 07:57 | CT ---
[id number] CT/CT Abdomen Pelvis W IV EXAM: CT Abdomen Pelvis W IV INDICATION: ABD PAIN, ELEVATED WHITE COUNT COMPARISON: July 17, 2020. DISCUSSION: Small sliding type hiatus hernia. Mild cardiomegaly. Mild linear scarring or atelectasis in the lung bases. Right hip arthroplasty. Slight retrolisthesis L1-L2 and spondylolisthesis L4-L5. Degenerative changes throughout the spine and in the left hip. Cholelithiasis without CT evidence of acute cholecystitis. 24 mm right renal cyst. Multiple diverticula of the colon without evidence of diverticulitis. Prominent stool volume in the proximal colon. The mid to distal small bowel is mildly dilated and fluid-filled with no significant transition point at the colon. This may relate to functional obstruction from an elevated stool volume, enteritis or ileus. Small volume free fluid in the pelvis. The liver, spleen, pancreas, adrenal glands, and left kidney are unremarkable. No free air or adenopathy. IMPRESSION: 1. Mild dilation of the mid to distal small bowel with no transition point identified. Favor ileus, enteritis, or functional obstruction from an elevated stool volume in the proximal colon. No transition point is identified to suggest mechanical obstruction. 2. Cholelithiasis. Bishnu Ortiz MD 03/27/21 0755 Thank you for allowing us to participate in the care of your patient.
[2021-03-27] MEDS ORDERED: Metoclopramide 10 MG/2 ML SDV IVPUSH ONE (08:00)
[2021-03-27] MEDS ORDERED: Polyethylene Glycol 3350 Powder 17 GM Packet PO ONE (08:00)
[2021-03-27] MEDS ORDERED: Bisacodyl 10 MG Supp RECTAL ONE (08:00)
== END 2021-03-27 08:40 | disposition home or self-care (01) ==
LOC: VM.ED 04:02
DX: K80.20 Calculus of gallbladder without cholecystitis without obstruction (principal); K56.7 Ileus, unspecified; N28.1 Cyst of kidney, acquired; K59.00 Constipation, unspecified; I10 Essential (primary) hypertension; E03.9 Hypothyroidism, unspecified; E66.9 Obesity, unspecified; Z88.0 Allergy status to penicillin; Z88.5 Allergy status to narcotic agent; Z88.8 Allergy status to other drugs, medicaments and biological substances; Z79.899 Other long term (current) drug therapy; Z68.39 Body mass index [BMI] 39.0-39.9, adult
CPT/HCPCS: 74177; 80053; 82150; 83690; 83735; 84100; 85025; 85610; 85730; 86140; 96374; 96375; 99284; A9270; J2270; J2405; J2765; J7030; Q9967